=== PATIENT | female | born 1965 | race Hispanic/Latino ===

== ENCOUNTER 2016-07-12 22:39 | Emergency (ER) | payer SELFPAY ==
[2016-07-12] MEDS: PROVENTIL IH ONE (23:19)
[2016-07-13] MEDS: DELTASONE PO ONE (02:41)
[2016-07-13] MEDS: DUONEB 0.5 MG-3 MG/3 ML SOLN IH ONE (03:04)
[2016-07-13] MEDS: TYLENOL PO ONE (03:32)
[2016-07-13] MEDS: ROBITUSSIN DM PO ONE (03:32)
[2016-07-13] MEDS: ZITHROMAX PO ONE (03:32)
--- NOTE | 2016-07-13 03:56 | Emergency Department Report ---
- General Chief Complaint: Adult Asthma Stated Complaint: SOB, CONGESTION, COUGH, CHILLS, FEVER Time Seen by Provider: 07/13/16 02:31 Source: patient Mode of arrival: Ambulatory Limitations: No Limitations - History of Present Illness Initial Comments: 50-year-old female past medical history smoker asthma or recurrent bronchitis and pneumonia presents with complaint of 4 days of fevers chills shortness of breath productive cough of yellow sputum. States that she was feeling slightly weak which is why she came to the ED. States she was taking jruj-[id number]-[id number] cough medicine with little to no relief of her cough. Denies any chest pain states she feels upper airway congestion. MD Complaint: cough Onset/Timin -: days(s) Severity: moderate Consistency: constant Context: sick contacts Associated Symptoms: fever, chills, cough - Related Data Home Medications Medication Instructions Recorded Confirmed Last Taken ALBUTEROL Inhaler 2 puff IH Q6H PRN 07/12/16 07/12/16 Unknown Previous Rx's Medication Instructions Recorded Last Taken Type ALBUTEROL Inhaler [ProAir HFA 2 puff IH QID PRN #1 inhalation 07/13/16 Unknown Rx Inhaler] Azithromycin [Zithromax TAB] 250 mg PO QDAY #4 tablet 07/13/16 Unknown Rx Phenylephrine/Dm/Acetaminop/GG 266 ml PO Q6H PRN #1 liquid 07/13/16 Unknown Rx [Mucinex Yglg-Ovy-Aaivsasyyn Lq] predniSONE [Deltasone] 40 mg PO QDAY #10 tab 07/13/16 Unknown Rx Allergies Allergy/AdvReac Type Severity Reaction Status Date / Time aspirin Allergy Hives Verified 07/12/16 23:03 diphenhydramine HCl Allergy Hives Verified 07/12/16 23:04 [From Benadryl] Penicillins Allergy Hives Verified 07/12/16 23:02 ED Review of Systems ROS: Stated complaint: SOB, CONGESTION, COUGH, CHILLS, FEVER Other details as noted in HPI Constitutional: chills, fever, malaise Eyes: denies: eye pain, eye discharge, vision change ENT: denies: ear pain, throat pain Respiratory: cough. denies: shortness of breath, wheezing Cardiovascular: denies: chest pain, palpitations Endocrine: no symptoms reported Gastrointestinal: denies: abdominal pain, nausea, diarrhea Genitourinary: denies: urgency, dysuria, discharge Musculoskeletal: denies: back pain, joint swelling, arthralgia Skin: denies: rash, lesions Neurological: denies: headache, weakness, paresthesias Psychiatric: denies: anxiety, depression Hematological/Lymphatic: denies: easy bleeding, easy bruising ED Past Medical Hx - Past Medical History Hx Asthma: Yes - Surgical History Additional Surgical History: , SPLEENECTOMY - Social History Smoking Status: Current Every Day Smoker Substance Use Type: None - Medications Home Medications: Home Medications Medication Instructions Recorded Confirmed Last Taken Type ALBUTEROL Inhaler 2 puff IH Q6H PRN 07/12/16 07/12/16 Unknown History ALBUTEROL Inhaler [ProAir HFA 2 puff IH QID PRN #1 inhalation 07/13/16 Unknown Rx Inhaler] Azithromycin [Zithromax TAB] 250 mg PO QDAY #4 tablet 07/13/16 Unknown Rx Phenylephrine/Dm/Acetaminop/GG 266 ml PO Q6H PRN #1 liquid 07/13/16 Unknown Rx [Mucinex Ukwi-Yaf-Fkmjgiyosh Lq] predniSONE [Deltasone] 40 mg PO QDAY #10 tab 07/13/16 Unknown Rx ED Physical Exam - General Limitations: No Limitations General appearance: alert, in no apparent distress - Head Head exam: Present: atraumatic, normocephalic - Eye Eye exam: Present: normal appearance, PERRL, EOMI - ENT ENT exam: Present: mucous membranes moist - Neck Neck exam: Present: normal inspection, full ROM - Respiratory Respiratory exam: Present: rhonchi (rhonchi at base of right lung field, decreased breath sounds left lung field). Absent: respiratory distress - Cardiovascular Cardiovascular Exam: Present: regular rate, normal rhythm. Absent: systolic murmur, diastolic murmur, rubs, gallop - GI/Abdominal GI/Abdominal exam: Present: soft, normal bowel sounds - Extremities Exam Extremities exam: Present: normal inspection - Back Exam Back exam: Present: normal inspection - Neurological Exam Neurological exam: Present: alert, oriented X3, CN II-XII intact, normal gait - Psychiatric Psychiatric exam: Present: normal affect, normal mood - Skin Skin exam: Present: warm, dry, intact, normal color. Absent: rash ED Course Vital Signs 07/12/16 07/12/16 07/12/16 22:48 23:19 23:30 Temperature 98 F Pulse Rate 96 H Pulse Rate [ 97 H 96 H Posterior Bilateral Throughout] Respiratory 18 Rate Respiratory 20 20 Rate [Posterior Bilateral Throughout] Blood Pressure 119/75 Blood Pressure 119/75 [Left] O2 Sat by Pulse 96 Oximetry 07/13/16 07/13/16 07/13/16 03:05 03:12 03:32 Temperature Pulse Rate Pulse Rate [ 96 H 94 H Posterior Bilateral Throughout] Respiratory 20 Rate Respiratory 18 18 Rate [Posterior Bilateral Throughout] Blood Pressure Blood Pressure [Left] O2 Sat by Pulse Oximetry 07/13/16 04:50 Temperature 98.0 F Pulse Rate 90 Pulse Rate [ Posterior Bilateral Throughout] Respiratory 20 Rate Respiratory Rate [Posterior Bilateral Throughout] Blood Pressure Blood Pressure 110/72 [Left] O2 Sat by Pulse 100 Oximetry ED Medical Decision Making - Lab Data Result diagrams: 07/13/16 03:40 07/13/16 03:40 - Medical Decision Making A/P: Community acquired pneumonia 1-treated empirically with azithromycin, prednisone, albuterol Motrin, guaiFenesin 2-PSI/PORT Score 69 points Risk Class II, 0.6-0.9% mortality. Outpatient treatment reasonable, barring other factors affecting care. Patient feels significant amount of relief with nebulizer treatment and is able to ambulate, O2 sat 100% on room air 3-f/u with PMD, I gave patient referral. I advised patient to return to the ED for any severe fever chills worsened short of breath at rest any chest pain and the nausea or vomiting patient understood my instructions clearly Critical care attestation.: If time is entered above; I have spent that time in minutes in the direct care of this critically ill patient, excluding procedure time. ED Disposition Clinical Impression: Community acquired pneumonia Disposition: DISCHARGED TO HOME OR SELFCARE Is pt being admited?: No Does the pt Need Aspirin: No Condition: Stable Instructions: Community-acquired Pneumonia (ED) Prescriptions: ALBUTEROL Inhaler [ProAir HFA Inhaler] 2 puff IH QID PRN #1 inhalation PRN Reason: Shortness Of Breath Azithromycin [Zithromax TAB] 250 mg PO QDAY #4 tablet Phenylephrine/Dm/Acetaminop/GG [Mucinex Uluj-Nry-Zrfgljitic Lq] 266 ml PO Q6H PRN #1 liquid PRN Reason: Cough predniSONE [Deltasone] 40 mg PO QDAY #10 tab Referrals: SHENA HOUSTON MD [Staff Physician] - 3-5 Days JOB ARITA MD [Staff Physician] - 3-5 Days Forms: Accompanied Note, Work/School Release Form(ED) Time of Disposition: 04:53
[2016-07-13 04:24] LABS: Anion Gap 18 mmol/L; BUN/Creatinine Ratio 18.57; Blood Urea Nitrogen 13 mg/dL (7-17); Calcium 8.9 mg/dL (8.4-10.2); Carbon Dioxide 27 mmol/L (22-30); Chloride 98.3 mmol/L (98-107); Glucose 102 mg/dL (65-100); Potassium 3.5 mmol/L (3.6-5.0); Sodium 140 mmol/L (137-145)
[2016-07-13 04:26] LABS: Basophils % (Auto) 0.6 % (0.0-1.8); Eosinophils % (Auto) 1.8 % (0.0-4.3); Hemoglobin 14.8 gm/dl (10.1-14.3); Mean Corpuscular HGB Conc 33 % (30-34); Mean Corpuscular Hemoglobin 33 pg (28-32); Mean Corpuscular Volume 101 fl (79-97); Platelet Count 237 K/mm3 (140-440); Red Blood Count 4.47 M/mm3 (3.65-5.03); Red Cell Distribution Width 14.2 % (13.2-15.2); White Blood Count 11.5 K/mm3 (4.5-11.0)
[2016-07-13 04:53] VITALS: BP 110/72
--- NOTE | 2016-07-13 09:51 | XRay Report ---
ROUTINE CHEST, TWO VIEWS: HISTORY: Worsening cough. The trachea, heart, mediastinal contour, lung morrissey and bony thorax are unremarkable. IMPRESSION: No acute cardiopulmonary process appreciated.
== END 2016-07-13 05:38 | disposition home or self-care (01) ==
LOC: ED 22:39
DX: J18.9 Pneumonia, unspecified organism (principal); J45.909 Unspecified asthma, uncomplicated; F17.200 Nicotine dependence, unspecified, uncomplicated
CPT/HCPCS: 36415; 71020; 80048; 82805; 85025; 94640; 99284; J7512

== ENCOUNTER 2016-10-24 04:22 | Inpatient (IN) | payer OTHER ==
[2016-10-24] MEDS ORDERED: DUONEB *Not for PRN Use IH ONE (04:32)
[2016-10-24 05:12] LABS: Basophils % (Auto) 0.8 % (0.0-1.8); Eosinophils % (Auto) 1.5 % (0.0-4.3); Hematocrit 44.2 % (30.3-42.9); Hemoglobin 14.7 gm/dl (10.1-14.3); Mean Corpuscular HGB Conc 33 % (30-34); Mean Corpuscular Hemoglobin 33 pg (28-32); Mean Corpuscular Volume 100 fl (79-97); Platelet Count 224 K/mm3 (140-440); Red Blood Count 4.43 M/mm3 (3.65-5.03); Red Cell Distribution Width 14.3 % (13.2-15.2); White Blood Count 12.2 K/mm3 (4.5-11.0)
[2016-10-24 05:31] LABS: Anion Gap 19 mmol/L; Blood Urea Nitrogen 10 mg/dL (7-17); Calcium 8.8 mg/dL (8.4-10.2); Carbon Dioxide 22 mmol/L (22-30); Chloride 102.1 mmol/L (98-107); Creatine Kinase MB 6.7 ng/mL (0.0-4.0); Glucose 94 mg/dL (65-100); Potassium 4.2 mmol/L (3.6-5.0); Sodium 139 mmol/L (137-145)
[2016-10-24 05:33] LABS: Magnesium 1.9 mg/dL (1.7-2.3)
--- NOTE | 2016-10-24 05:35 | XRay Report ---
FINAL REPORT PROCEDURE: XR CHEST ROUTINE 2V TECHNIQUE: PA and lateral chest radiographs were obtained. CPT 10327 HISTORY: Shortness of breath COMPARISON: No prior studies are available for comparison. FINDINGS: Heart: Normal. Mediastinum/Vessels: Normal. Lungs/Pleural space: Normal. Bony thorax: No acute osseous abnormality. Other: IMPRESSION: There is no evidence of an acute cardiopulmonary process.
[2016-10-24] MEDS ORDERED: PROVENTIL IH ONE ×3 (07:22→11:03)
[2016-10-24] MEDS ORDERED: MAGNESIUM SULFATE 2GM/50ML 2 GM/50 ML BAG IV ONE (07:29)
[2016-10-24] MEDS ORDERED: VIBRAMYCIN PO ONE (07:29)
--- NOTE | 2016-10-24 07:31 | Emergency Department Report ---
HPI - General Chief Complaint: Adult Asthma Time Seen by Provider: 10/24/16 07:14 - HPI HPI: Patient here reporting asthma difficulty breathing and wheezing since yesterday at 5 PM. States she has a history of asthma she does not have any prescription. Patient says she is recently homeless. He is to take albuterol but she cannot afford it. Denies any chest pain. Patient has a history of COPD and she is a smoker for 30 years. Denies any nausea or vomiting. Pain is. Attention generalized and achy. Denies any fever or chills. Denies any difficulty swallowing. She reports coughing and wheezing. No medication taken. She says she feels better when she rests and worse when she is up and about ED Past Medical Hx - Past Medical History Previous Medical History?: Yes Hx Asthma: Yes Hx COPD: Yes (>30 Year smoker) - Surgical History Past Surgical History?: Yes Additional Surgical History: , SPLEENECTOMY - Family History Family history: hypertension - Social History Smoking Status: Heavy Tobacco Smoker Substance Use Type: None Other Social History: Patient , Home less - Medications Home Medications: Home Medications Medication Instructions Recorded Confirmed Last Taken Type No Known Home Medications [No 10/24/16 10/24/16 Unknown History Reported Home Medications] ED Review of Systems ROS: Stated complaint: WHEEZING Other details as noted in HPI Comment: All other systems reviewed and negative Constitutional: weakness. denies: chills, fever ENT: denies: ear pain, throat pain, congestion Respiratory: cough, shortness of breath, SOB with exertion, SOB at rest, wheezing. denies: orthopnea, stridor Cardiovascular: denies: chest pain, palpitations, edema, syncope Gastrointestinal: denies: abdominal pain, nausea, vomiting, diarrhea Musculoskeletal: myalgia. denies: back pain, joint swelling, arthralgia Skin: denies: rash Neurological: weakness. denies: headache, numbness, paresthesias, confusion, abnormal gait, vertigo Physical Exam - Physical Exam Vital Signs: Vital Signs 10/24/16 10/24/16 10/24/16 04:29 04:38 05:05 Temperature 98.1 F Pulse Rate 105 H Pulse Rate [ 92 H 95 H Anterior Bilateral Throughout] Respiratory 20 Rate Respiratory 20 20 Rate [Anterior Bilateral Throughout] Blood Pressure 131/85 [Right] O2 Sat by Pulse 90 Oximetry 10/24/16 07:11 Temperature Pulse Rate Pulse Rate [ Anterior Bilateral Throughout] Respiratory 20 Rate Respiratory Rate [Anterior Bilateral Throughout] Blood Pressure [Right] O2 Sat by Pulse Oximetry Vital Signs 10/24/16 10/24/16 10/24/16 04:29 04:38 05:05 Temperature 98.1 F Pulse Rate 105 H Pulse Rate [ 92 H 95 H Anterior Bilateral Throughout] Respiratory 20 Rate Respiratory 20 20 Rate [Anterior Bilateral Throughout] Blood Pressure 131/85 [Right] O2 Sat by Pulse 90 Oximetry 10/24/16 10/24/16 10/24/16 07:11 07:40 07:43 Temperature Pulse Rate Pulse Rate [ 98 H 100 H Anterior Bilateral Throughout] Respiratory 20 Rate Respiratory 20 20 Rate [Anterior Bilateral Throughout] Blood Pressure [Right] O2 Sat by Pulse Oximetry 10/24/16 10/24/16 07:55 09:02 Temperature Pulse Rate 121 H Pulse Rate [ 102 H Anterior Bilateral Throughout] Respiratory 26 H Rate Respiratory 20 Rate [Anterior Bilateral Throughout] Blood Pressure [Right] O2 Sat by Pulse 88 Oximetry Vital Signs 10/24/16 10/24/16 10/24/16 04:29 04:38 05:05 Temperature 98.1 F Pulse Rate 105 H Pulse Rate [ 92 H 95 H Anterior Bilateral Throughout] Respiratory 20 Rate Respiratory 20 20 Rate [Anterior Bilateral Throughout] Blood Pressure 131/85 [Right] O2 Sat by Pulse 90 Oximetry 10/24/16 10/24/16 10/24/16 07:11 07:40 07:43 Temperature Pulse Rate Pulse Rate [ 98 H 100 H Anterior Bilateral Throughout] Respiratory 20 Rate Respiratory 20 20 Rate [Anterior Bilateral Throughout] Blood Pressure [Right] O2 Sat by Pulse Oximetry 10/24/16 10/24/16 10/24/16 07:55 09:02 11:17 Temperature Pulse Rate 121 H Pulse Rate [ 102 H 110 H Anterior Bilateral Throughout] Respiratory 26 H Rate Respiratory 20 20 Rate [Anterior Bilateral Throughout] Blood Pressure [Right] O2 Sat by Pulse 88 Oximetry 10/24/16 11:38 Temperature 99.1 F Pulse Rate 92 H Pulse Rate [ 115 H Anterior Bilateral Throughout] Respiratory 18 Rate Respiratory 20 Rate [Anterior Bilateral Throughout] Blood Pressure 165/109 [Right] O2 Sat by Pulse 99 Oximetry General: This is a 51-year-old female well-nourished well-developed in mild distress from breathing Physical Exam: Head: Normocephalic, atraumatic. No abrasions, laceration or contusion Neck: Supple, no adenopathy. Full range of motion. No C-spine tenderness. No muscular tenderness Eyes: Marcos sclera nonicteric, no conjunctival injection, bilateral pupi no murmur ls equal and reactive to light. Bilateral EOM intact. Ears: Bilateral TMs pearly morrison, bilaterally EAC without any redness swelling or drainage. Nose: Marcos nasal mucosa without any erythema or congestion. No drainage. Mouth: Moist, no pharyngeal exudate or erythema. Uvula is midline and oral airways patent. Tongue Nl. No oral lesion noted. No peritonsillar abscess. s CV:S1, S2 . Tachycardiac, no murmur Lungs: Patient with wheezing throughout lung morrissey, slight increase work of breathing, tachypneic, congested cough. Abdomen: Soft, normal bowel sounds in all quadrants. No rigidity or distention. Extremity: No clubbing, cyanosis or edema. +2 pulses in all extremities. No neurovascular compromise. Capillary refill is less than 3 seconds. Skin: Clean dry and intact, no rash or lesions. PSYCH: Smiling and appropriate for age ED Course Vital Signs 10/24/16 10/24/16 10/24/16 04:29 04:38 05:05 Temperature 98.1 F Pulse Rate 105 H Pulse Rate [ 92 H 95 H Anterior Bilateral Throughout] Respiratory 20 Rate Respiratory 20 20 Rate [Anterior Bilateral Throughout] Blood Pressure 131/85 [Right] O2 Sat by Pulse 90 Oximetry 10/24/16 07:11 Temperature Pulse Rate Pulse Rate [ Anterior Bilateral Throughout] Respiratory 20 Rate Respiratory Rate [Anterior Bilateral Throughout] Blood Pressure [Right] O2 Sat by Pulse Oximetry Vital Signs 10/24/16 10/24/16 10/24/16 04:29 04:38 05:05 Temperature 98.1 F Pulse Rate 105 H Pulse Rate [ 92 H 95 H Anterior Bilateral Throughout] Respiratory 20 Rate Respiratory 20 20 Rate [Anterior Bilateral Throughout] Blood Pressure 131/85 [Right] O2 Sat by Pulse 90 Oximetry 10/24/16 10/24/16 10/24/16 07:11 07:40 07:43 Temperature Pulse Rate Pulse Rate [ 98 H 100 H Anterior Bilateral Throughout] Respiratory 20 Rate Respiratory 20 20 Rate [Anterior Bilateral Throughout] Blood Pressure [Right] O2 Sat by Pulse Oximetry 10/24/16 10/24/16 10/24/16 07:55 09:02 11:17 Temperature Pulse Rate 121 H Pulse Rate [ 102 H 110 H Anterior Bilateral Throughout] Respiratory 26 H Rate Respiratory 20 20 Rate [Anterior Bilateral Throughout] Blood Pressure [Right] O2 Sat by Pulse 88 Oximetry 10/24/16 11:38 Temperature 99.1 F Pulse Rate 92 H Pulse Rate [ 115 H Anterior Bilateral Throughout] Respiratory 18 Rate Respiratory 20 Rate [Anterior Bilateral Throughout] Blood Pressure 165/109 [Right] O2 Sat by Pulse 99 Oximetry - Reevaluation(s) Reevaluation #1: 10/24/16 09:07 She received doxycycline 100 mg by mouth, Solu-Medrol 125 mg IV, magnesium sulfate 2 g IV, albuterol 10 mg nebulizer with some relief of wheezing and but she is still hypoxic, tachycardic and tachypnea. Patient with elevated white count and her C-reactive protein is elevated. I discussed with patient that she will need to be admitted for [id number] breathing treatment and steroids and states she is homeless I will let social media assistant speak with her. Patient lung sounds with wheezing throughout lung morrissey and still a congestive cough. Her chest x-ray revealed no acute abnormality. I spoke with the attending Dr. Mark in the emergency room and he agrees the patient will need to be admitted. Reevaluation #2: 10/24/16 11:04 Hospitalist came to admit pat but she said she wants to go AMA and then she changed her mind. Awaiting hospitalist return to see patient. Lungs remains with wheezing but WOB improved. PO2 via ABG 48. Dr Mark updated Reevaluation #3: 10/24/16 11:[address] edwin Del Rosario who [facility]. Bridge orders and tired. She is aware. Reevaluation #4: 10/24/16 12:56 stable and [facility] route [facility]. Lung sounds better Reevaluation #5: 10/24/16 13:14 Patient is a insistent on leaving AGAINST MEDICAL ADVICE. Spoke with Dr. Rice and Dr mark. Dr Mark spoke with patient and informed her of the risks of leaving againts medical advice. Patient decided that she wants to go home even after some begin with attending physician in ED. She signed AMA paperwork ED Medical Decision Making - Lab Data Result diagrams: 10/24/16 04:49 10/24/16 04:49 Lab Results 10/24/16 10/24/16 10/24/16 Range/Units 04:26 04:49 04:49 WBC 12.2 H (4.5-11.0) K/mm3 RBC 4.43 (3.65-5.03) M/mm3 Hgb 14.7 H (10.1-14.3) gm/dl Hct 44.2 H (30.3-42.9) % MCV 100 H (79-97) fl MCH 33 H (28-32) pg MCHC 33 (30-34) % RDW 14.3 (13.2-15.2) % Plt Count 224 (140-440) K/mm3 Lymph % (Auto) 27.5 (13.4-35.0) % Stephens % (Auto) 7.5 H (0.0-7.3) % Eos % (Auto) 1.5 (0.0-4.3) % Baso % (Auto) 0.8 (0.0-1.8) % Lymph # 3.3 (1.2-5.4) K/mm3 Stephens # 0.9 H (0.0-0.8) K/mm3 Eos # 0.2 (0.0-0.4) K/mm3 Baso # 0.1 (0.0-0.1) K/mm3 Seg Neutrophils % 62.7 (40.0-70.0) % Seg Neutrophils # 7.6 (1.8-7.7) K/mm3 VBG pH (7.320-7.420) Sodium 139 (137-145) mmol/L Potassium 4.2 (3.6-5.0) mmol/L Chloride 102.1 (98-107) mmol/L Carbon Dioxide 22 (22-30) mmol/L Anion Gap 19 mmol/L BUN 10 (7-17) mg/dL Creatinine 0.5 L (0.7-1.2) mg/dL Estimated GFR > 60 ml/min BUN/Creatinine Ratio 20.00 % Glucose 94 (65-100) mg/dL POC Glucose 108 H (70-105) Lactic Acid (0.7-2.0) mmol/L Calcium 8.8 (8.4-10.2) mg/dL Magnesium (1.7-2.3) mg/dL Total Creatine Kinase (30-135) units/L CK-MB (CK-2) (0.0-4.0) ng/mL CK-MB (CK-2) Rel Index (0-4) Troponin T < 0.010 (0.00-0.029) ng/mL C-Reactive Protein (0.00-1.30) mg/dL NT-Pro-B Natriuret Pep (0-900) pg/mL 10/24/16 10/24/16 10/24/16 Range/Units 04:49 04:49 04:49 WBC (4.5-11.0) K/mm3 RBC (3.65-5.03) M/mm3 Hgb (10.1-14.3) gm/dl Hct (30.3-42.9) % MCV (79-97) fl MCH (28-32) pg MCHC (30-34) % RDW (13.2-15.2) % Plt Count (140-440) K/mm3 Lymph % (Auto) (13.4-35.0) % Stephens % (Auto) (0.0-7.3) % Eos % (Auto) (0.0-4.3) % Baso % (Auto) (0.0-1.8) % Lymph # (1.2-5.4) K/mm3 Stephens # (0.0-0.8) K/mm3 Eos # (0.0-0.4) K/mm3 Baso # (0.0-0.1) K/mm3 Seg Neutrophils % (40.0-70.0) % Seg Neutrophils # (1.8-7.7) K/mm3 VBG pH 7.390 (7.320-7.420) Sodium (137-145) mmol/L Potassium (3.6-5.0) mmol/L Chloride (98-107) mmol/L Carbon Dioxide (22-30) mmol/L Anion Gap mmol/L BUN (7-17) mg/dL Creatinine (0.7-1.2) mg/dL Estimated GFR ml/min BUN/Creatinine Ratio % Glucose (65-100) mg/dL POC Glucose (70-105) Lactic Acid 0.90 (0.7-2.0) mmol/L Calcium (8.4-10.2) mg/dL Magnesium 1.90 (1.7-2.3) mg/dL Total Creatine Kinase 308 H (30-135) units/L CK-MB (CK-2) 6.7 H (0.0-4.0) ng/mL CK-MB (CK-2) Rel Index 2.1 (0-4) Troponin T (0.00-0.029) ng/mL C-Reactive Protein 4.00 H (0.00-1.30) mg/dL NT-Pro-B Natriuret Pep 135.4 (0-900) pg/mL - EKG Data -: EKG Interpreted by Me (attending physician) EKG shows normal: sinus rhythm Rate: normal (sinus rhythm at 98) - EKG Data When compared to previous EKG there are: no significant change Interpretation: no acute changes, normal EKG - Radiology Data Radiology results: report reviewed Surgery revealed no acute cardiopulmonary processes. - Medical Decision Making ED course: Patient here complaining of difficulty breathing, wheezing and coughing. Physical finding for acute asthma exacerbation, COPD exacerbation, hypoxia, tachycardia, elevated blood pressure with history of high blood pressure, leukocytosis, acute cough. Chest x-ray shows patient with no acute cardiopulmonary processes. Patient pulse ox was at 90 when she arrived in the emergency room and on 2 L it is at 95%. Walking pulse ox was at 88. Sensation is that she is homeless and does not have any money and she usually takes albuterol but she doesn't have any albuterol. She was given albuterol 10 mg nebulizer, Solu-Medrol 125 mg IV and magnesium sulfate 2 g IV in the emergency room. She says she felt better but she continues to wheeze and her pulse ox was at 91 on room air. Room air ABG reveal patient with PO2 of 48. Patient also given additional albuterol mg with Atrovent 0.5 mg nebulizer. She still remains a recent lung morrissey after treatment but sounds better and initial evaluation. She Patient with CBC mild elevation in white count, CRP elevated. Chemistry stable, cardiac enzymes are stable, magnesium is stable, FiO2 stable. Total CK elevated at 300 and CK-MB mildly elevated This was explained to patient and it was decided after speaking with ER attending physician (Dr. Mark) that patient will need to be admitted. This was explained to patient and she initially refuses and wanted to sign out AMA . I spoke with patient and told her her condition and she decided to stay. Dr. Monroy came and evaluated Pt. He admitted patient as inpatient with orders. Patient was in the room [place] with her and she reports that she wants to go home and she does not want to stay. Dr. Mark evaluated patient and spoke with her and advised her of the risk of her leaving AGAINST MEDICAL ADVICE. She still insisted on leaving and therefore patient signed AMA paperwork and left emergency room. Critical care attestation.: If time is entered above; I have spent that time in minutes in the direct care of this critically ill patient, excluding procedure time. ED Disposition Clinical Impression: Acute severe exacerbation of severe persistent asthma, COPD exacerbation, Hypoxia, Elevated blood pressure reading in office with diagnosis of hypertension, Tachycardia Leukocytosis, unspecified Qualifiers: Leukocytosis type: other Qualified Code(s): D72.828 - Other elevated white blood cell count Disposition: DC-07 LEFT AGAINST MED ADVICE Is pt being admited?: No Does the pt Need Aspirin: No Condition: Stable
--- NOTE | 2016-10-24 09:07 | Admit Criteria Form ---
Admission Criteria Documentation: ASTHMA Clinical Indications for Admission to Inpatient Care (Place 'X' for any and all applicable criteria): Admission is indicated for ANY ONE of the following (1)(2)(3)(4)(5): [ ]I. Absent or markedly diminished breath sounds (silent chest) [X ]II. Oxygen saturation < 92% [ ]III. PaCO2 = / > 42 mm Hg (5.6 kPa) [ ]IV. Peak expiratory flow rate < 40% of predicted or personal best after treatment. [ ]V. Peak expiratory flow rate < 33% of predicted or personal before after treatment [ ]. Change in mental status [ ]VII. Ventilatory support required [ ]VIII. PaO2 < 60 mm Hg (8.0 kPa) [ ]IX. Cyanosis [ ]X. Cardiac dysrhythmia (e.g., bradycardia) [ ]XI. Hemodynamic instability [ ]XII. Radiographic evidence of complication requiring inpatient treatment (e.g., pneumonia, pneumothorax) [X ]XIII. Inpatient admission required rather than observation care (also use Asthma: Observation Care guideline as appropriate) because of ANY ONE of the following: [X ]a) Respiratory finding that is severe or persistent (eg, dyspnea, tachypnea, accessory muscle use) [ ]b) Airflow measurements less than 60% of predicted or personal best that persist (e.g., over 24 hours) or worsen despite treatments [ ]c) Supplemental oxygen or respiratory treatments for over 24 hours that are performable only in acute inpatient setting [ ]d) Other condition, treatment or monitoring requiring inpatient admission. Extended stay beyond goal length of stay may be needed for (26)(27)(28): [ ]a) Severe respiratory failure (23) (29) (30) [ ]b) Secondary causes and complications (25) [ ]c) Status asthmaticus [ ]d) Chronic obstructive asthma [ ]e) Older patients (29) [ ]f) Slow resolution [ ]g) Clinically significant exacerbation of comorbidities (eg, nuno. heart failure, atrial fibrillation) The original [facility] content created by [employer] has been revised. The portions of the content which have been revised are identified through the use of italic text or in bold, and [facility] [employer] has neither reviewed nor approved the modified material. All other unmodified content is copyright [facility] Please see references footnoted in the original [facility] edition 2016 Admission Criteria Met: Yes
[2016-10-24 09:20] LABS: ISTAT Base Excess -4; ISTAT DEVICE 0; ISTAT HCO3 21.6; ISTAT PCO2 38.7 (35-45); ISTAT PH 7.355 (7.35-7.45); ISTAT PO2 48 (80-105); ISTAT SO2 81; ISTAT TCO2 23
[2016-10-24] MEDS ORDERED: ATROVENT IH ONE (11:03)
[2016-10-24 11:40] VITALS: BP 165/109
[2016-10-24] MEDS ORDERED: MILK OF MAGNESIA PO PRN (11:55)
[2016-10-24] MEDS ORDERED: ZOFRAN IV PRN (11:55)
[2016-10-24] MEDS ORDERED: DULCOLAX PR PRN (11:55)
[2016-10-24] MEDS ORDERED: TYLENOL PO PRN (11:55)
[2016-10-24] MEDS ORDERED: LEVAQUIN 750MG/150ML 750 MG/150 ML BAG IV SCH (12:00)
[2016-10-24] MEDS ORDERED: LOVENOX SUB-Q SCH (12:00)
--- NOTE | 2016-10-24 13:12 | History and Physical Report ---
History of Present Illness Date of examination: 10/24/16 Date of admission: 10/24/16 11:56 Chief complaint: Shortness of breath, wheezing or coughing one day duration History of present illness: Patient is a 51-year-old lady who was a history of asthma, relocated from was presented to [place] at about 6 years ago. Has been off albuterol and Atrovent. Started having progressive wheezing or shortness of breath. Also has dry cough. Symptoms progressively got worse. Into the emergency department where chest x-ray was unremarkable. ABG showed evidence of hypoxia with PaO2 of 48. Patient denies any fever no chills. No chest pain. Has a 55 year pack history of smoking. Past History Past Medical History: other (asthma) Past Surgical History: Other (splenectomy) Social history: smoking, other (homeless at this time). denies: alcohol abuse Family history: no significant family history Medications and Allergies Allergies Allergy/AdvReac Type Severity Reaction Status Date / Time aspirin Allergy Hives Verified 07/12/16 23:03 diphenhydramine HCl Allergy Hives Verified 07/12/16 23:04 [From Benadryl] Penicillins Allergy Hives Verified 07/12/16 23:02 Home Medications Medication Instructions Recorded Confirmed Last Taken Type No Known Home Medications [No 10/24/16 10/24/16 Unknown History Reported Home Medications] Active Meds: Active Medications Acetaminophen (Tylenol) 650 mg PO Q4H PRN PRN Reason: Pain MILD(1-3)/Fever >100.5/DORSEY Albuterol/Ipratropium (Duoneb *Not For Prn Use*) 1 ampul IH Q6HRT [facility] Bisacodyl (Dulcolax) 10 mg GA QDAY PRN PRN Reason: Constipation unrelieved by MOM Enoxaparin Sodium (Lovenox) 40 mg SUB-Q QDAY [facility] Last Admin: 10/24/16 12:38 Dose: Not Given Levofloxacin/Dextrose (Levaquin 750mg/150ml) 750 mg in 150 mls @ 100 mls/hr IV Q24HR DON PRN Reason: Protocol Last Admin: 10/24/16 12:37 Dose: 100 mls/hr Magnesium Hydroxide (Milk Of Magnesia) 30 ml PO Q4H PRN PRN Reason: Constipation Methylprednisolone Sodium Succinate (Solu-Medrol) 40 mg IV Q6H DON Last Admin: 10/24/16 12:38 Dose: 40 mg Ondansetron HCl (Zofran) 4 mg IV Q8H PRN PRN Reason: N/V unrelieved by Reglan Review of systems Constitutional: Well Nouridhed and Well developed. Head: NC/ AT Eyes: Denies any visual impairments. No discharge from the eyes Nose: Denies any rhinorrhea or epistaxis Throats: Denies any post nasal drainage. Ears: Denies any hearing deficits Cardiovascular system: Denies any chest pain, shortness of breath, orthopnea, paroxysmal nocturnal dyspnea, or palpitation. Respiratory system: Has cough, difficulty breathing, wheezing, Gastrointestinal system: Denies any abdominal pain, nausea vomiting, hematemesis or melena. Neurological system: Denies any headache, slurred speech, facial droop, lateralizing weakness Genitalia system: Denies any dysuria, urinary frequency or urgency, urethral discharge Skin: No rashes, hyperpigmented spots. Hematological: Denies any cervical tenderness hemorrhages or petechia. Immunological: Denies any multiple septic spots, Lymphatic: Denies any generalized lymphadenopathy. Endocrine: Denies any polyuria, polydipsia, polyphagia. No heat or cold intolerance. Musculoskeletal system: No joint pain or swelling. Psych: No visual, tactile, auditory or hallucination Exam - Constitutional Vitals: Temp Pulse Resp BP Pulse Ox 99.1 F 115 H 20 165/109 99 10/24/16 11:38 10/24/16 11:38 10/24/16 11:38 10/24/16 11:38 10/24/16 11:38 General appearance: Present: no acute distress, well-nourished - EENT Eyes: Present: PERRL ENT: hearing intact, clear oral mucosa - Neck Neck: Present: supple, normal ROM - Respiratory Respiratory effort: normal Respiratory: bilateral: diminished - Cardiovascular Heart Sounds: Present: S1 & S2. Absent: rub, click - Extremities Extremities: pulses symmetrical, No edema Peripheral Pulses: within normal limits - Abdominal General gastrointestinal: Present: soft, non-tender, non-distended, normal bowel sounds Female genitourinary: Present: normal - Integumentary Integumentary: Present: clear, warm, dry - Musculoskeletal Musculoskeletal: gait normal, strength equal bilaterally - Psychiatric Psychiatric: appropriate mood/affect, intact judgment & insight - Neurologic Neurologic: CNII-XII intact, moves all extremities Results - Labs CBC & Chem 7: 10/24/16 04:49 10/24/16 04:49 Assessment and Plan Acute respiratory failure Asthma exacerbation Leukocytosis Hypoxia Tobacco use disorder Plan Admit patient to telemetry Oxygen to be tested well groomed 94% Bronchodilators, IV Solu-Medrol, IV Levaquin. Tobacco cessation counseling Just as I was finishing of this dictation patient decided to sign out AGAINST MEDICAL ADVICE. Counseling to the contrary by the emergency room doctor was unsuccessful.
[2016-10-24] MEDS ORDERED: DUONEB *Not for PRN Use IH SCH (14:00)
--- NOTE | 2016-10-25 00:54 | Discharge Summary ---
Providers - Providers Date of Admission: 10/24/16 11:56 Date of discharge: 10/24/16 Attending physician: ELLI MERA Primary care physician: [employer] Hospitalization Reason for admission: Asthma exercebnation Condition: Stable Pertinent studies: none Procedures: none Hospital course: Pt is a 51 y/o lady who is has a history of asthma and still smokes one and half pack of cigarette daily for the past 30 year and has been out of her inhaler started having severe wheezing and shortness of breath. Came to the ED of [facility]. Was found to be hypoxic. Admitted for further treatment. Pt signed AMA shortly therafter Disposition: DC-01 TO HOME OR SELFCARE Core Measure Documentation - Palliative Care Palliative Care/ Comfort Measures: Not Applicable - Core Measures Any of the following diagnoses?: none Exam - Constitutional Vitals: Temp Pulse Resp BP Pulse Ox 99.1 F 115 H 20 165/109 99 10/24/16 11:38 10/24/16 11:38 10/24/16 11:38 10/24/16 11:38 10/24/16 11:38 General appearance: Present: no acute distress, well-nourished - EENT Eyes: Present: PERRL - Neck Neck: Present: supple, normal ROM - Respiratory Respiratory effort: normal Respiratory: bilateral: diminished, wheezing - Cardiovascular Heart Sounds: Present: S1 & S2. Absent: rub, click - Extremities Extremities: pulses symmetrical, No edema Peripheral Pulses: within normal limits - Abdominal General gastrointestinal: Present: soft, non-tender, non-distended, normal bowel sounds - Integumentary Integumentary: Present: clear, warm, dry - Musculoskeletal Musculoskeletal: gait normal, strength equal bilaterally - Psychiatric Psychiatric: appropriate mood/affect, intact judgment & insight - Neurologic Neurologic: CNII-XII intact, moves all extremities Plan Activity: advance as tolerated Diet: regular Follow up with: PRIMARY CARE, [Primary Care Provider] - 3-5 Days
== END 2016-10-24 22:37 | disposition home or self-care (01) | DRG 189 ==
LOC: ED 04:22 → 3A 11:56
PROVIDERS: ADMIT Family Medicine; ATTEND Family Medicine
PROC: 4A033R1 Measurement of Arterial Saturation, Peripheral, Percutaneous Approach (ICD-10-PCS; principal; 2016-10-24)
DX: J96.01 Acute respiratory failure with hypoxia (principal); J45.901 Unspecified asthma with (acute) exacerbation; Z59.0 Homelessness; F17.210 Nicotine dependence, cigarettes, uncomplicated; Z90.81 Acquired absence of spleen; Z82.49 Family history of ischemic heart disease and other diseases of the circulatory system; D72.829 Elevated white blood cell count, unspecified; Z88.6 Allergy status to analgesic agent; Z88.0 Allergy status to penicillin; Z71.6 Tobacco abuse counseling
CPT/HCPCS: 36415; 71020; 80048; 80061; 82140; 82550; 82553; 82803; 82805; 82962; 83036; 83735; 83880; 84484; 85025; 86140; 93005; 93010; 94640; 96365; 96367; 96375; J1650; J1956; J2920; J2930; J3475

== ENCOUNTER 2017-04-01 07:06 | Emergency (ER) | payer SELFPAY ==
[2017-04-01 07:15] VITALS: BP 103/63
--- NOTE | 2017-04-01 07:51 | XRay Report ---
ROUTINE CHEST, TWO VIEWS: HISTORY: Cough with fever. The trachea, heart, mediastinal contour, lung morrissey and bony thorax are unremarkable. IMPRESSION: No acute cardiopulmonary process is identified. No significant change since 10/24/16.
[2017-04-01 08:16] LABS: Basophils % (Auto) 0.3 % (0.0-1.8); Eosinophils # (Auto) 0.1 K/mm3 (0.0-0.4); Eosinophils % (Auto) 1.1 % (0.0-4.3); Hematocrit 45.7 % (30.3-42.9); Hemoglobin 15.6 gm/dl (10.1-14.3); Lymphocytes # (Auto) 2.9 K/mm3 (1.2-5.4); Lymphocytes % (Auto) 45.7 % (13.4-35.0); Mean Corpuscular HGB Conc 34 % (30-34); Mean Corpuscular Hemoglobin 34 pg (28-32); Mean Corpuscular Volume 99 fl (79-97); Monocytes # (Auto) 0.9 K/mm3 (0.0-0.8); Monocytes % (Auto) 13.7 % (0.0-7.3); Platelet Count 156 K/mm3 (140-440); Red Blood Count 4.61 M/mm3 (3.65-5.03)
[2017-04-01 08:46] LABS: BUN/Creatinine Ratio 22; Blood Urea Nitrogen 13 mg/dL (7-17); Calcium 8.5 mg/dL (8.4-10.2); Hemolysis Index 15
[2017-04-01] MEDS ORDERED: XOPENEX IH ONE (09:45)
[2017-04-01] MEDS ORDERED: ZOFRAN IM ONE (09:45)
[2017-04-01] MEDS ORDERED: ATROVENT IH ONE (09:45)
--- NOTE | 2017-04-01 09:51 | Emergency Department Report ---
ED Shortness of Breath HPI - General Chief Complaint: Upper Respiratory Infection Stated Complaint: COUGH Time Seen by Provider: 04/01/17 09:40 Source: patient Mode of arrival: Ambulatory Limitations: No Limitations - History of Present Illness Initial Comments: Patient is 51 years old female history of splenectomy secondary to trauma, heavy smoker, patient presented to the ER with cough productive with yellowish sputum associated with low-grade fever. Patient also complaint of shortness of breath, denied any chest pain. Patient also stated that she's been vomiting. MD Complaint: shortness of breath, cough -: days(s) Severity: moderate Context: recent URI Associated Symptoms: fever, cough, sputum production Treatments Prior to Arrival: none - Related Data Home Medications Medication Instructions Recorded Confirmed Last Taken No Known Home Medications [No 10/24/16 10/24/16 Unknown Reported Home Medications] Allergies Allergy/AdvReac Type Severity Reaction Status Date / Time aspirin Allergy Hives Verified 07/12/16 23:03 diphenhydramine HCl Allergy Hives Verified 07/12/16 23:04 [From Benadryl] Penicillins Allergy Hives Verified 07/12/16 23:02 ED Review of Systems ROS: Stated complaint: COUGH Other details as noted in HPI Comment: All other systems reviewed and negative Constitutional: chills Respiratory: cough, shortness of breath, SOB with exertion, wheezing Cardiovascular: denies: chest pain, palpitations Gastrointestinal: nausea, vomiting. denies: abdominal pain, diarrhea, constipation, hematemesis, melena, hematochezia Neurological: headache. denies: weakness, numbness, paresthesias, confusion, abnormal gait, vertigo ED Past Medical Hx - Past Medical History Previous Medical History?: Yes Hx Asthma: Yes Hx COPD: Yes (>30 Year smoker) - Surgical History Past Surgical History?: Yes Additional Surgical History: , SPLEENECTOMY - Social History Smoking Status: Current Every Day Smoker Substance Use Type: Non Opiate Pain, Other - Medications Home Medications: Home Medications Medication Instructions Recorded Confirmed Last Taken Type No Known Home Medications [No 10/24/16 10/24/16 Unknown History Reported Home Medications] ED Physical Exam - General Limitations: No Limitations General appearance: alert, in no apparent distress - Head Head exam: Present: atraumatic, normocephalic, normal inspection - Eye Eye exam: Present: normal appearance, PERRL - ENT ENT exam: Present: normal exam, normal orophraynx, mucous membranes moist - Neck Neck exam: Present: normal inspection, full ROM. Absent: tenderness, meningismus, lymphadenopathy - Respiratory Respiratory exam: Present: normal lung sounds bilaterally, wheezes, rhonchi, decreased breath sounds, prolonged expiratory. Absent: respiratory distress, rales, stridor, chest wall tenderness, accessory muscle use - Cardiovascular Cardiovascular Exam: Present: regular rate, normal rhythm, normal heart sounds - GI/Abdominal GI/Abdominal exam: Present: soft, normal bowel sounds. Absent: distended, tenderness, guarding, rebound, rigid, organomegaly, mass, bruit, pulsatile mass , hernia - Extremities Exam Extremities exam: Present: normal inspection, full ROM, normal capillary refill - Back Exam Back exam: Present: normal inspection, full ROM. Absent: CVA tenderness (R), CVA tenderness (L) - Neurological Exam Neurological exam: Present: alert, oriented X3, CN II-XII intact - Skin Skin exam: Present: warm, intact, normal color. Absent: cyanosis, diaphoretic ED Course Vital Signs 04/01/17 07:10 Temperature 97.7 F Pulse Rate 92 H Respiratory 20 Rate Blood Pressure 103/63 O2 Sat by Pulse 93 Oximetry ED Medical Decision Making - Lab Data Result diagrams: 04/01/17 Unknown 04/01/17 Unknown - Radiology Data Radiology results: report reviewed Referring Physician: ELMA DELGADILLO Patient Name: JENNIFER AVENDANO Date of : 1965 Sex: Female Report Date: 2017-04-01 Report Status: Finalized Findings [facility] [address] [place] [address] XRay Report Signed Patient: JENNIFER AVENDANO MR#: [id number] : 1965 Acct:[id number] Age/Sex: 51 / F ADM Date: 04/01/17 Loc: ED Attending Dr: Ordering Physician: ELMA DELGADILLO MD Date of Service: 04/01/17 Procedure(s): XR chest routine 2V Accession Number(s): [id number] cc: ELMA DELGADILLO MD Fluoro Time In Minutes: ROUTINE CHEST, TWO VIEWS: HISTORY: Cough with fever. The trachea, heart, mediastinal contour, lung morrissey and bony thorax are unremarkable. IMPRESSION: No acute cardiopulmonary process is identified. No significant change since 10/24/16. Transcribed By: TTR Dictated By: NEYMAR FERREIRA JR, MD Electronically Authenticated By: NEYMAR FERREIRA JR, MD Signed Date/Time: 04/01/17745 DD/ 4 TD/TT: 04/01/17745 Critical care attestation.: If time is entered above; I have spent that time in minutes in the direct care of this critically ill patient, excluding procedure time. ED Disposition Clinical Impression: COPD exacerbation, Acute bronchitis Disposition: DC-01 TO HOME OR SELFCARE Is pt being admited?: No Condition: Stable Instructions: Acute Bronchitis (ED) Referrals: PRIMARY CARE, [Primary Care Provider] - 3-5 Days
== END 2017-04-01 10:30 | disposition home or self-care (01) ==
LOC: ED 07:06
DX: J44.1 Chronic obstructive pulmonary disease with (acute) exacerbation (principal); J20.9 Acute bronchitis, unspecified; F17.200 Nicotine dependence, unspecified, uncomplicated; Z88.6 Allergy status to analgesic agent; Z88.0 Allergy status to penicillin; Z88.8 Allergy status to other drugs, medicaments and biological substances
CPT/HCPCS: 36415; 71046; 80048; 85025; 94640; 96372; 99284; J2405

== ENCOUNTER 2017-06-06 02:49 | Emergency (ER) | payer SELFPAY ==
[2017-06-06 03:24] VITALS: BP 101/68
[2017-06-06] MEDS ORDERED: PROVENTIL IH ONE (04:34)
--- NOTE | 2017-06-06 04:57 | Emergency Department Report ---
HPI - General Chief Complaint: Back Pain/Injury Time Seen by Provider: 06/06/17 04:51 - HPI HPI: 51-year-old female with a past medical history of asthma and COPD. She comes in with complaint of cough shortness of breathing back pain worse with cough. Patient was last seen here 04/01/2017 with pneumonia. Patient has allergies to aspirin Benadryl and penicillin. ED Past Medical Hx - Past Medical History Previous Medical History?: Yes Hx Asthma: Yes Hx COPD: Yes (>30 Year smoker) - Surgical History Past Surgical History?: Yes Additional Surgical History: , SPLEENECTOMY - Social History Smoking Status: Current Every Day Smoker Substance Use Type: None - Medications Home Medications: Home Medications Medication Instructions Recorded Confirmed Last Taken Type Levofloxacin [Levaquin TAB] 500 mg PO QDAY #7 tablet 04/01/17 Unknown Rx Ondansetron [Zofran Odt] 4 mg PO Q8HR PRN #14 tab.rapdis 04/01/17 Unknown Rx ALBUTEROL Inhaler [ProAir HFA 2 puff IH QID PRN #1 inhalation 06/06/17 Unknown Rx Inhaler] ED Review of Systems ROS: Stated complaint: BACK PAIN Other details as noted in HPI Constitutional: chills Eyes: denies: eye pain, eye discharge, vision change ENT: denies: ear pain, throat pain Respiratory: cough, shortness of breath Cardiovascular: denies: chest pain, palpitations Endocrine: no symptoms reported Gastrointestinal: denies: abdominal pain, nausea, diarrhea Genitourinary: denies: urgency, dysuria, discharge Musculoskeletal: back pain. denies: joint swelling, arthralgia Skin: denies: rash, lesions Neurological: denies: headache, weakness, paresthesias Psychiatric: denies: anxiety, depression Hematological/Lymphatic: denies: easy bleeding, easy bruising Physical Exam - Physical Exam Vital Signs: Vital Signs 06/06/17 06/06/17 03:12 04:35 Temperature 99 F Pulse Rate 102 H 98 H Respiratory 20 18 Rate Blood Pressure 101/68 O2 Sat by Pulse 92 94 Oximetry Physical Exam: GENERAL APPEARANCE: Well developed, well nourished, now acute distress SKIN: Inspection of the skin reveals no rashes, ulcerations or petechiae. HEENT: The sclerae were anicteric and conjunctivae were pink and moist. Extraocular movements were intact and pupils were equal, round, and reactive to light with normal accommodation. External inspection of the ears and nose showed no scars, lesions, or masses. Lips, no teeth, and gums showed normal mucosa. The oral mucosa, hard and soft palate, tongue and posterior pharynx were normal. NECK: Supple and symmetric. There was no thyroid enlargement, and no tenderness , or masses were felt. CHEST: Normal AP diameter and normal contour without any kyphoscoliosis. LUNGS: Auscultation of the lungs revealed end expiratory wheeze with rhonchi CARDIOVASCULAR: There was a regular rate and rhythm without any murmurs, gallops , rubs. The carotid pulses were normal and 2+ bilaterally without bruits. Peripheral pulses were 2+ and symmetric. ABDOMEN: Soft and nontender with normal bowel sounds. LYMPH NODES: No lymphadenopathy was appreciated in the neck, axillae or groin. MUSCULOSKELETAL: Gait was normal. T EXTREMITIES: No cyanosis, clubbing or edema. NEUROLOGIC: Alert and oriented x 3. Normal affect. ED Course Vital Signs 06/06/17 06/06/17 03:12 04:35 Temperature 99 F Pulse Rate 102 H 98 H Respiratory 20 18 Rate Blood Pressure 101/68 O2 Sat by Pulse 92 94 Oximetry - Reevaluation(s) Reevaluation #1: 06/06/17 06:24 Patient has been reevaluated by this provider. Patient still has coarse breath sounds with chest congestion. Rechecked oxygen level which was 94% on room air heart rate was 101. I will order Atrovent. ED Medical Decision Making - Radiology Data Radiology results: report reviewed, image reviewed FINDINGS: The lungs are slightly hyperinflated. There are no acute infiltrates or congestion. The heart size is normal. Pleural fluid is not seen. The skeletal structures reveal multilevel disc degeneration in the thoracic spine. IMPRESSION: Slight hyperinflation. No acute process in the chest. Transcribed By: RB Dictated By: LILLIAN PATEL MD Electronically Authenticated By: LILLIAN PATEL MD Signed Date/Time: 06/06/17 05 - Medical Decision Making Patient has been evaluated by this provider fast track. Patient comes to the fast track satting at 92% on room air respiratory rate 20 tachycardic at 102 temperature 90.9. This provider started albuterol nebulizer 5 mg solution and added Solu-Medrol Medrol 125 mg. Chest x-ray ordered. We will reevaluate patient wants x-ray and completion of medication. Critical care attestation.: If time is entered above; I have spent that time in minutes in the direct care of this critically ill patient, excluding procedure time. ED Disposition Clinical Impression: Asthma exacerbation in COPD Disposition: DC- TO HOME OR SELFCARE Is pt being admited?: No Does the pt Need Aspirin: No Condition: Stable Instructions: Asthma (ED) Additional Instructions: Please stop smoking. Please use inhaler as prescribed. Follow up with her primary care provider I have listed one below. Prescriptions: ALBUTEROL Inhaler [ProAir HFA Inhaler] 2 puff IH QID PRN #1 inhalation PRN Reason: Shortness Of Breath Referrals: DONALDO JAMISON MD [Primary Care Provider] - 3-5 Days [facility] [Provider Group] - 3-5 Days Forms: Work/School Release Form(ED)
--- NOTE | 2017-06-06 05:31 | XRay Report ---
FINAL REPORT EXAM: XR CHEST ROUTINE 2V HISTORY: difficulty breathing/coughing TECHNIQUE: PA and lateral views of the chest were submitted. Comparison is made to the study of 10/24/2016. FINDINGS: The lungs are slightly hyperinflated. There are no acute infiltrates or congestion. The heart size is normal. Pleural fluid is not seen. The skeletal structures reveal multilevel disc degeneration in the thoracic spine. IMPRESSION: Slight hyperinflation. No acute process in the chest.
[2017-06-06] MEDS ORDERED: ATROVENT IH ONE (06:22)
== END 2017-06-06 07:53 | disposition home or self-care (01) ==
LOC: ED 02:49
DX: J44.1 Chronic obstructive pulmonary disease with (acute) exacerbation (principal); F17.200 Nicotine dependence, unspecified, uncomplicated; Z88.6 Allergy status to analgesic agent; Z88.8 Allergy status to other drugs, medicaments and biological substances; Z88.0 Allergy status to penicillin
CPT/HCPCS: 71046; 96372; 99283; J2930